=== PATIENT | male | born 1940 | race Caucasian/White ===

== ENCOUNTER 2017-11-19 08:16 | Emergency (ER) | payer OTHER ==
[~2017-11-19] VITALS: Ht 180.3 cm; Wt 81.6 kg
[2017-11-19 08:57] LABS: Urine Bacteria NONE SEEN /hpf (None Seen); Urine Blood Negative /uL (Negative); Urine Hyaline Cast FEW /lpf (0 - 2); Urine Mucus FEW (None Seen); Urine Specific Gravity 1.018 (1.001-1.035); Urine WBC 1 /hpf (0 - 3)
[2017-11-19 09:02] LABS: Alcohol, Urine < 3.0 mg/dL (0-5); Amphetamine Screen, Urine NEGATIVE (NEGATIVE); Barbiturate Scree,Urine NEGATIVE (NEGATIVE); Cannabinoid Screen, Urine NEGATIVE (NEGATIVE); Cocaine Screen, Urine NEGATIVE (NEGATIVE); Opiate Scree,Urine POSITIVE (NEGATIVE); Phencyclidine Screen, Urine NEGATIVE (NEGATIVE)
[2017-11-19] MEDS ORDERED: VERA1TAB9 PO (09:02)
[2017-11-19] MEDS ORDERED: ATEN-60 PO (09:02)
[2017-11-19] MEDS ORDERED: FINA5TAB4 PO (09:02)
[2017-11-19] MEDS ORDERED: DABI75CA3 PO (09:02)
[2017-11-19] MEDS ORDERED: TAM04C PO (09:02)
[2017-11-19 09:03] LABS: Basophils # (auto) 0 uL; Basophils % (auto) 0.6 % (0.0-2.0); Eosinophils # (auto) 0.5 uL; Eosinophils % (auto) 6.2 % (0.0-7.0); Hematocrit 39.9 % (41.0-53.0); Hemoglobin 13.2 g/dL (13.5-17.5); Lymphocytes # (auto) 3.9 uL; Lymphocytes % (auto) 54.1 % (10.0-50.0); Mean Corpuscular Hemoglobin 32.2 pg (28.0-32.0); Mean Corpuscular Hgb Conc. 33.2 g/dL (32.0-36.0); Monocytes # (auto) 0.5 uL; Monocytes % (auto) 7.5 % (0.0-12.0); Neutrophils # (auto) 2.3 uL; Neutrophils % (auto) 31.6 % (37.0-80.0); Platelet Count (auto) 198 10^3/uL (140-450); Red Blood Cells 4.11 10^6/uL (4.5-5.90); White Blood Cell 7.3 10^3/uL (4.4-10.8)
[2017-11-19 09:09] LABS: Benzodiazephine Screen, Urine NEGATIVE (NEGATIVE)
[2017-11-19 09:19] LABS: Alanine Aminotransferase 11 U/L (16-61); Albumin 3.5 g/dL (3.4-5.0); Anion Gap 13 (5-15); Aspartate Aminotransferase 11 U/L (15-37); BUN/Creatinine Ratio 10.5; Blood Urea Nitrogen 10 mg/dL (7-18); Calcium 8.6 mg/dL (8.5-10.1); Carbon Dioxide 21 mmol/L (21-32); Chloride 102 mmol/L (98-107); GFR African American 99 mL/min; GFR Non-African American 82 mL/min; Glucose 121 mg/dL (74-106); Magnesium 2.1 mg/dL (1.6-2.6); Potassium 3.5 mmol/L (3.5-5.1); Sodium 136 mmol/L (136-145)
[2017-11-19 09:24] LABS: Alkaline Phosphatase 76 U/L (45-117); Bilirubin, Total 0.8 mg/dL (0.2-1.0); Total Protein 6.9 g/dL (6.4-8.2)
[2017-11-19] MEDS ORDERED: LORazepam 2MG/ML-1ML VIAL IV ONE ×2 (12:30)
[2017-11-19] MEDS ORDERED: LEVETIRACETAM INJ 1,000 MG in D5W 5% 100 ML IV ONE (13:00)
[2017-11-19 13:41] VITALS: BP 101/70
== END 2017-11-19 14:18 | disposition short-term general hospital (02) ==
LOC: ER 08:16 → EDBD 08:16 → EDUNIT# 08:16 → ER 14:18
DX: G40.909 Epilepsy, unspecified, not intractable, without status epilepticus (principal); I10 Essential (primary) hypertension; I48.91 Unspecified atrial fibrillation; Z79.01 Long term (current) use of anticoagulants; R41.82 Altered mental status, unspecified; Z87.820 Personal history of traumatic brain injury
CPT/HCPCS: 36415; 70450; 71046; 80053; 80307; 81001; 83735; 84484; 85025; 93005; 96374; 96375; 99285; J1953; J2060; J7060

== ENCOUNTER 2018-06-28 15:38 | Emergency (ER) | payer OTHER ==
[~2018-06-28] VITALS: Ht 182.9 cm; Wt 79.4 kg
[~2018-06-28 15:38] MED LIST: ATEN-60 PO; DABI75CA3 PO; FINA5TAB4 PO; TAM04C PO; VERA1TAB9 PO
[2018-06-28] MEDS ORDERED: SODIUM CHLORIDE 0.9% 1,000 ML IV ONE ×2 (16:25→18:00)
[2018-06-28 17:09] LABS: Basophils # (auto) 0 uL; Basophils % (auto) 0.1 % (0.0-2.0); Eosinophils # (auto) 0 uL; Eosinophils % (auto) 0.1 % (0.0-7.0); Hematocrit 19.5 % (41.0-53.0); Monocytes # (auto) 0.2 uL
[2018-06-28 17:20] LABS: Lymphocytes % (auto) 6.7 % (10.0-50.0); Neutrophils % (auto) 90.1 % (37.0-80.0); White Blood Cell 8.3 10^3/uL (4.4-10.8)
[2018-06-28 17:21] LABS: Lymphocytes # (auto) 0.6 uL; Mean Corpuscular Volume 99.8 fL (80.0-100.0); Neutrophils # (auto) 7.5 uL; Red Blood Cells 1.95 10^6/uL (4.5-5.90)
[2018-06-28 17:22] LABS: Platelet Count (auto) 171 10^3/uL (140-450); Red Cell Distribution Width 14.8 % (11.8-14.3)
[2018-06-28 17:25] LABS: Hemoglobin 6.6 g/dL (13.5-17.5)
[2018-06-28 17:26] LABS: BUN/Creatinine Ratio 44.4; Bilirubin, Total 0.5 mg/dL (0.2-1.0); Calcium 7.9 mg/dL (8.5-10.1); Potassium 3.3 mmol/L (3.5-5.1); Total Protein 5.7 g/dL (6.4-8.2)
[2018-06-28] MEDS ORDERED: metroNIDAZOLE 500MG/100ML 100 ML IV ONE (18:00)
[2018-06-28] MEDS ORDERED: PIPERACILLIN-TAZOB 3.375GM 100 ML IV ONE (18:00)
[2018-06-28 18:10] LABS: INR 1.2 (0.9-1.15); Partial Thromboplastin Time 27.7 sec (23.78-33.04); Prothrombin Time 12.7 sec (9.27-12.13)
[2018-06-28 18:54] VITALS: BP 96/54
[2018-06-28 19:16] VITALS: BP 114/61
[2018-06-28 19:55] VITALS: BP 108/64
[2018-06-28 21:13] LABS: Urine Bacteria NONE SEEN /hpf (None Seen); Urine Blood Negative /uL (Negative); Urine Hyaline Cast FEW /lpf (0 - 2); Urine WBC 9 /hpf (0 - 3)
== END 2018-06-28 20:30 | disposition short-term general hospital (02) ==
LOC: EDBD 15:38 → ER 15:45
DX: S36.039A Unspecified laceration of spleen, initial encounter (principal); D64.9 Anemia, unspecified; I48.91 Unspecified atrial fibrillation; I10 Essential (primary) hypertension; R07.89 Other chest pain; W06.XXXA Fall from bed, initial encounter; Y93.89 Activity, other specified; Y92.89 Other specified places as the place of occurrence of the external cause; Y99.8 Other external cause status
CPT/HCPCS: 36415; 36430; 70450; 71250; 72192; 74176; 80053; 81001; 83880; 84484; 85025; 85610; 85730; 86850; 86900; 86901; 86920; 93005; 96365; 96368; 99291; 99292; J2543; J3490; J7030; J7040; P9016

== ENCOUNTER 2021-10-24 05:28 | Emergency (ER) | payer OTHER ==
[~2021-10-24] VITALS: Ht 182.9 cm; Wt 48.5 kg
[~2021-10-24 05:28] MED LIST changes: -DABI75CA3 PO; +DABI75CA5 PO; +VERA1TAB24 PO; -VERA1TAB9 PO
[2021-10-24] MEDS ORDERED: DEXTROSE (25%) 10 ML SYRG IV ONE ×2 (06:00→06:30)
[2021-10-24] MEDS ORDERED: DEXTROSE (50%) 50ML SYRG IV ONE (06:00)
[2021-10-24] MEDS ORDERED: DEXTROSE 10% 1,000 ML IV ONE ×2 (06:23→06:30)
[2021-10-24 06:33] LABS: Basophils # (auto) 0 10 ^3/uL (0-0.2); Eosinophils # (auto) 0 10 ^3/uL (0-0.8); Eosinophils % (auto) 0.2 % (0.0-7.0); Hemoglobin 9.8 g/dL (13.5-17.5); Lymphocytes # (auto) 0.3 10 ^3/uL (0.4-5.4); Monocytes # (auto) 0.2 10 ^3/uL (0-1.3); Monocytes % (auto) 2.9 % (0.0-12.0)
[2021-10-24 06:35] LABS: Basophils % (auto) 0.1 % (0.0-2.0); Hematocrit 29.5 % (41.0-53.0); Lymphocytes % (auto) 6.2 % (10.0-50.0); Mean Corpuscular Hemoglobin 35.3 pg (28.0-32.0); Mean Corpuscular Hgb Conc. 33.3 g/dL (32.0-36.0); Mean Corpuscular Volume 106.1 fL (80.0-100.0); Neutrophils # (auto) 4.8 10 ^3/uL (1.6-8.6); Neutrophils % (auto) 90.6 % (37.0-80.0); Nucleated Red Blood Cells % 0.1 %; Red Blood Cells 2.78 10^6/uL (4.5-5.90); Red Cell Distribution Width 23.7 % (11.8-14.3); White Blood Cell 5.3 10^3/uL (4.4-10.8)
[2021-10-24] MEDS ORDERED: dilTIAZem 125mg/125ml BAG KIT 125 ML IV ONE ×2 (07:49→08:00)
[2021-10-24] MEDS ORDERED: dilTIAZem 25 MG/5 ML VIAL IV ONE ×2 (07:49→08:00)
[2021-10-24 08:05] LABS: Calcium 8.1 mg/dL (8.5-10.1); Potassium 3.4 mmol/L (3.5-5.1)
[2021-10-24 08:08] LABS: Albumin 2.6 g/dL (3.4-5.0); BUN/Creatinine Ratio 35.6
[2021-10-24 08:11] LABS: Bilirubin, Total 1.2 mg/dL (0.2-1.0); Total Protein 5.7 g/dL (6.4-8.2)
[2021-10-24] MEDS ORDERED: LORazepam 2MG/ML-1ML VIAL IV ONE ×2 (08:15→21:15)
[2021-10-24 08:51] LABS: Urine Bacteria NONE SEEN /hpf (None Seen); Urine Blood Negative /uL (Negative); Urine Specific Gravity 1.019 (1.001-1.035); Urine WBC 1 /hpf (0 - 3)
[2021-10-24] MEDS ORDERED: metroNIDAZOLE 500MG/100ML 100 ML IV ONE (13:45)
[2021-10-24] MEDS ORDERED: cefTRIAXone 1GM/50ML D5W 50 ML IV ONE (13:45)
[2021-10-24 15:22] LABS: Lactic Acid w/Reflex 3.2 mmol/L (0.4-2.0)
[2021-10-25] MEDS ORDERED: DEXTROSE 10% 1,000 ML IV ONE ×2 (01:45→17:45)
[2021-10-25] MEDS ORDERED: dilTIAZem 125mg/125ml BAG KIT 100 ML IV SCH (08:30)
[2021-10-25] MEDS ORDERED: cefTRIAXone 1GM/50ML D5W 50 ML IV ONE (09:15)
[2021-10-25] MEDS ORDERED: metroNIDAZOLE 500MG/100ML 100 ML IV ONE (10:00)
[2021-10-25] MEDS ORDERED: cefTRIAXone 1GM/50ML D5W 50 ML IV SCH (10:00)
[2021-10-25] MEDS ORDERED: metroNIDAZOLE 500MG/100ML 100 ML IV SCH ×2 (11:00→22:00)
[2021-10-26 01:10] VITALS: BP 105/58
[2021-10-26] MEDS ORDERED: cefTRIAXone 1GM/50ML D5W 50 ML IV SCH (10:00)
== END 2021-10-26 01:42 | disposition short-term general hospital (02) ==
LOC: EDBD 05:28 → ER 05:28
DX: U07.1 COVID-19 (principal); G93.41 Metabolic encephalopathy; K63.1 Perforation of intestine (nontraumatic); I12.9 Hypertensive chronic kidney disease with stage 1 through stage 4 chronic kidney disease, or unspecified chronic kidney disease; E11.22 Type 2 diabetes mellitus with diabetic chronic kidney disease; N18.9 Chronic kidney disease, unspecified; E11.649 Type 2 diabetes mellitus with hypoglycemia without coma; I48.91 Unspecified atrial fibrillation; Z86.2 Personal history of diseases of the blood and blood-forming organs and certain disorders involving the immune mechanism
CPT/HCPCS: 36415; 36600; 71045; 74176; 80053; 81001; 82805; 82962; 83605; 83735; 83880; 84484; 85025; 87040; 87426; 93005; 96365; 96366; 96367; 96368; 96375; 96376; 99291; J0696; J2060; J3490